=== PATIENT | male | born 1975 | race Caucasian/White ===

== ENCOUNTER 2018-06-01 10:18 | Inpatient (IN) | payer OTHER ==
[~2018-06-01 10:18] MED LIST: CEFAZOLIN 2 GM/50 ML (PMX) 50 ML IVPB; LACTATED RINGER'S 1,000 ML IV*; SEVOFLURANE 15 MIN
[2018-06-01] MEDS ORDERED: BISACODYL 10 MG SUPP PR (13:00)
[2018-06-01] MEDS ORDERED: AL HYDROX/MG HYDROX/SIMETH 30 ML CUP PO (13:00)
[2018-06-01] MEDS ORDERED: CEPASTAT LOZENGE MT (13:00)
[2018-06-01] MEDS ORDERED: DIPHENHYDRAMINE 50 MG INJ IV ×2 (13:00→17:30)
[2018-06-01] MEDS ORDERED: HYDROmorphONE 0.5 MG/0.5 ML SYG IV (13:00)
[2018-06-01] MEDS ORDERED: NALOXONE (0.4 MG/ML) INJ IV (13:00)
[2018-06-01] MEDS ORDERED: MIDAZOLAM 1 MG/ML 2 ML INJ (13:22)
[2018-06-01] MEDS ORDERED: ROCURONIUM 50 MG INJ ×3 (13:22→14:28)
[2018-06-01] MEDS ORDERED: SUCCINYLCHOLINE CHLORIDE 100 MG/5 ML SYG IV ×2 (13:22→13:35)
[2018-06-01] MEDS ORDERED: PROPOFOL 20 ML ×2 (13:22→13:35)
[2018-06-01] MEDS ORDERED: LIDOCAINE 2% (SDV) 5 ML INJ (13:22)
[2018-06-01] MEDS ORDERED: CEFAZOLIN 1 GM INJ (13:44)
[2018-06-01] MEDS ORDERED: FAMOTIDINE 20 MG INJ (13:59)
[2018-06-01] MEDS ORDERED: ONDANSETRON 4 MG INJ (13:59)
[2018-06-01] MEDS: THROMBIN 5000 UNIT VIAL ×3 (15:26→16:06)
[2018-06-01] MEDS: BUPIVACAINE 0.5%/EPI (SDV) 30 ML INJ (15:27)
[2018-06-01] MEDS: CA CHLORIDE (GM) 10% 10 ML INJ (15:44)
[2018-06-01] MEDS: HEPARIN 1000 UNITS/ML 10 ML INJ ×2 (15:45)
[2018-06-01] MEDS: SURGIFOAM POWDER 1 GM KIT (15:46)
[2018-06-01] MEDS: CEFAZOLIN 1 GM INJ (15:46)
[2018-06-01] MEDS: GELATIN SIZE 100 SPONGE (15:49)
[2018-06-01] MEDS ORDERED: HYDROmorphONE 2 MG/ML SYG (16:53)
[2018-06-01] MEDS ORDERED: EPHEDrine SULFATE 50 MG/5 ML SYG IV (17:30)
[2018-06-01] MEDS ORDERED: HYDROmorphONE 1 MG/5 ML IV SYRINGE IV ×3 (17:30)
[2018-06-01] MEDS ORDERED: PROCHLORPERAZINE 10 MG INJ IV (17:30)
[2018-06-01] MEDS ORDERED: hydrALAzine 20 MG INJ IV (17:30)
[2018-06-01] MEDS ORDERED: FENTAnyl 50 MCG/ML VIAL IV ×3 (17:30)
[2018-06-01] MEDS ORDERED: LABETALOL HCL 20MG INJ IV (17:30)
[2018-06-01] MEDS: HYDROmorphONE 0.2 MG/ML PCA IV (18:10)
[2018-06-01] MEDS: ONDANSETRON 4 MG INJ IV ×3 (18:25→22:20)
[2018-06-01] MEDS: MEPERIDINE 25 MG INJ IV (18:25)
[2018-06-01] MEDS ORDERED: ALBUTEROL HFA 8 GM INHALER INH (18:30)
[2018-06-01] MEDS ORDERED: DEXTROSE 50% 50 ML SYRINGE IV ×2 (18:30)
[2018-06-01] MEDS ORDERED: GLUCAGON 1 MG INJ IM (18:30)
[2018-06-01] MEDS ORDERED: GLUCOSE GEL 15 GRAM TUBE BUCCAL (18:30)
[2018-06-01] MEDS ORDERED: GLUCOSE GEL 15 GRAM TUBE PO ×2 (18:30)
[2018-06-01] MEDS: 1/2 NS + KCL 20 MEQ 1,000 ML IV ×2 (20:50→23:30)
[2018-06-01] MEDS: DOCUSATE SODIUM 100 MG CAP PO (20:51)
[2018-06-01] MEDS: CEFAZOLIN 1 GM/50 ML (PMX) 50 ML IVPB (20:51)
[2018-06-01 21:32] LABS: ADD UMIC NO; UR ASCORBIC ACID NEGATIVE (NEGATIVE); UR BILIRUBIN (Dip) NEGATIVE (NEGATIVE); UR BLOOD (Dip) NEGATIVE (NEGATIVE); UR CLARITY CLEAR (CLEAR); UR COLOR YELLOW (YELLOW); UR GLUCOSE (Dip) NEGATIVE (NEGATIVE); UR KETONES (Dip) NEGATIVE (NEGATIVE); UR LEUKOCYTE ESTERASE (Dip) NEGATIVE Leu/ul (NEGATIVE); UR NITRITE (Dip) NEGATIVE (NEGATIVE); UR SPECIFIC GRAVITY (Dip) 1.017 (1.003-1.030); UR TOTAL PROTEIN (Dip) NEGATIVE (NEGATIVE); UR UROBILINOGEN (Dip) NEGATIVE (NEGATIVE)
[2018-06-01] MEDS: ZOLPIDEM 5 MG TAB PO (23:52)
[2018-06-02] MEDS: HYDROmorphONE 0.2 MG/ML PCA IV ×3 (03:52→22:38)
[2018-06-02 05:28] LABS: ADD MAN DIFF? NO
[2018-06-02 05:35] LABS: WHITE BLOOD COUNT 13.5 10^3/ul (4.8-10.8)
[2018-06-02 05:35] LABS: BASOPHILS % 0.3 % (0.0-2.0); EOSINOPHILS % 0.1 % (0.0-7.0); HEMATOCRIT 42.3 % (42.0-52.0); HEMOGLOBIN 14.6 g/dl (14.0-18.0); LYMPHOCYTES # 1.1 10^3/ul (0.8-2.9); LYMPHOCYTES % 7.8 % (15.0-51.0); MEAN CORPUSCULAR HEMOGLOBIN 33.2 pg (29.0-33.0); MEAN CORPUSCULAR HGB CONC 34.5 g/dl (32.0-37.0); MEAN CORPUSCULAR VOLUME 96.1 fl (82.0-101.0); MEAN PLATELET VOLUME 9.4 fl (7.4-10.4); MONOCYTES % 7.4 % (0.0-11.0); NEUTROPHIL # 11.3 10^3/ul (1.6-7.5); NEUTROPHILS % 83.8 % (39.0-77.0); PLATELET COUNT 264 10^3/UL (140-415)
[2018-06-02] MEDS: CEFAZOLIN 1 GM/50 ML (PMX) 50 ML IVPB ×3 (05:45→13:44)
[2018-06-02] MEDS: PANTOPRAZOLE (EC) 40 MG TAB PO (05:45)
[2018-06-02 06:04] LABS: ANION GAP 10 (5-13); BLOOD UREA NITROGEN 14 mg/dl (7-20); CALCIUM 9.2 mg/dl (8.4-10.2); CARBON DIOXIDE 27 mmol/L (21-31); CHLORIDE 103 mmol/L (97-110); CREATININE 0.84 mg/dl (0.61-1.24); Estimated GFR > 60 mL/min (>60); GLUCOSE 139 mg/dl (70-220); MAGNESIUM 1.7 mg/dl (1.7-2.5); POTASSIUM 4.1 mmol/L (3.5-5.1); SODIUM 140 mmol/L (135-144)
[2018-06-02] MEDS: INSULIN ASPART [NOVOLOG] 3 ML PEN SC ×3 (07:20→17:25)
[2018-06-02] MEDS: metFORMIN 500 MG TAB PO ×2 (08:46→18:15)
[2018-06-02] MEDS: DOCUSATE SODIUM 100 MG CAP PO ×2 (08:47→20:10)
[2018-06-02] MEDS: FLUTICASONE/VILANTEROL 100-25 INH (08:47)
[2018-06-02] MEDS: CARISOPRODOL 350 MG TAB PO ×2 (10:13→18:15)
[2018-06-02] MEDS: 1/2 NS + KCL 20 MEQ 1,000 ML IV (10:13)
[2018-06-02] MEDS: ZOLPIDEM 5 MG TAB PO (22:42)
[2018-06-03] MEDS: HYDROmorphONE 0.2 MG/ML PCA IV (04:34)
[2018-06-03] MEDS: PANTOPRAZOLE (EC) 40 MG TAB PO (04:34)
[2018-06-03 05:11] LABS: ADD MAN DIFF? NO
[2018-06-03 05:22] LABS: ABNORMAL IP MESSAGE 1; BASOPHIL # 0.1 10^3/ul (0.0-0.1); BASOPHILS % 0.3 % (0.0-2.0); EOSINOPHILS # 0.1 10^3/ul (0.0-0.5); EOSINOPHILS % 0.5 % (0.0-7.0); HEMATOCRIT 41.7 % (42.0-52.0); HEMOGLOBIN 14.1 g/dl (14.0-18.0); LYMPHOCYTES # 1.7 10^3/ul (0.8-2.9); LYMPHOCYTES % 10.6 % (15.0-51.0); MEAN CORPUSCULAR HEMOGLOBIN 33.2 pg (29.0-33.0); MEAN CORPUSCULAR HGB CONC 33.8 g/dl (32.0-37.0); MEAN CORPUSCULAR VOLUME 98.1 fl (82.0-101.0); MEAN PLATELET VOLUME 9.6 fl (7.4-10.4); MONOCYTE # 1.6 10^3/ul (0.3-0.9); MONOCYTES % 10.2 % (0.0-11.0); NEUTROPHIL # 12.3 10^3/ul (1.6-7.5); NEUTROPHILS % 77.8 % (39.0-77.0); PLATELET COUNT 210 10^3/UL (140-415); POSITIVE DIFF @See below; RED BLOOD COUNT 4.25 10^6/ul (4.70-6.10); RED CELL DISTRIBUTION WIDTH 12.3 % (11.5-14.5)
[2018-06-03 05:22] LABS: WHITE BLOOD COUNT 15.9 10^3/ul (4.8-10.8)
[2018-06-03 05:41] LABS: PHOSPHORUS 3.2 mg/dl (2.5-4.9)
[2018-06-03 05:48] LABS: ANION GAP 7 (5-13); BLOOD UREA NITROGEN 10 mg/dl (7-20); CALCIUM 9.1 mg/dl (8.4-10.2); CARBON DIOXIDE 33 mmol/L (21-31); CHLORIDE 98 mmol/L (97-110); CREATININE 1.01 mg/dl (0.61-1.24); Estimated GFR > 60 mL/min (>60); GLUCOSE 142 mg/dl (70-220); MAGNESIUM 2.1 mg/dl (1.7-2.5); POTASSIUM 4.1 mmol/L (3.5-5.1); SODIUM 138 mmol/L (135-144)
[2018-06-03] MEDS: INSULIN ASPART [NOVOLOG] 3 ML PEN SC ×3 (07:20→17:25)
[2018-06-03] MEDS: FLUTICASONE/VILANTEROL 100-25 INH (09:00)
[2018-06-03] MEDS: CARISOPRODOL 350 MG TAB PO ×3 (09:28→21:16)
[2018-06-03] MEDS: metFORMIN 500 MG TAB PO ×2 (09:28→18:09)
[2018-06-03] MEDS: HYDROCODONE/APAP (10/325) TAB PO ×4 (09:29→21:16)
[2018-06-03] MEDS: DOCUSATE SODIUM 100 MG CAP PO ×2 (09:29→21:16)
[2018-06-03] MEDS ORDERED: HYDROCODONE/APAP (10/325) TAB PO ×2 (09:30→10:00)
[2018-06-03 15:19] LABS: ADD UMIC YES; UR ASCORBIC ACID NEGATIVE (NEGATIVE); UR BILIRUBIN (Dip) NEGATIVE (NEGATIVE); UR BLOOD (Dip) 1+ mg/dL (NEGATIVE); UR CLARITY SLIGHTLY CLOUDY (CLEAR); UR COLOR YELLOW (YELLOW); UR GLUCOSE (Dip) NEGATIVE (NEGATIVE); UR KETONES (Dip) NEGATIVE (NEGATIVE); UR LEUKOCYTE ESTERASE (Dip) NEGATIVE Leu/ul (NEGATIVE); UR MUCUS FEW /HPF (NONE SEEN); UR NITRITE (Dip) NEGATIVE (NEGATIVE); UR RBC 1 /HPF (0-5); UR SPECIFIC GRAVITY (Dip) 1.011 (1.003-1.030); UR TOTAL PROTEIN (Dip) NEGATIVE (NEGATIVE); UR UROBILINOGEN (Dip) NEGATIVE (NEGATIVE); UR WBC 1 /HPF (0-5)
[2018-06-03] MEDS: ALPRAZOLAM 1 MG TAB PO (23:53)
[2018-06-03] MEDS: ZOLPIDEM 5 MG TAB PO (23:53)
[2018-06-03] MEDS: ACETAMINOPHEN 325 MG TAB PO (23:59)
[2018-06-04] MEDS: PANTOPRAZOLE (EC) 40 MG TAB PO (04:49)
[2018-06-04 06:18] LABS: ADD MAN DIFF? NO
[2018-06-04 06:34] LABS: WHITE BLOOD COUNT 10.7 10^3/ul (4.8-10.8)
[2018-06-04 06:34] LABS: BASOPHILS % 0.2 % (0.0-2.0); EOSINOPHILS # 0.3 10^3/ul (0.0-0.5); EOSINOPHILS % 2.4 % (0.0-7.0); HEMATOCRIT 42.3 % (42.0-52.0); HEMOGLOBIN 14.1 g/dl (14.0-18.0); LYMPHOCYTES # 1.9 10^3/ul (0.8-2.9); LYMPHOCYTES % 17.8 % (15.0-51.0); MEAN CORPUSCULAR HEMOGLOBIN 32.9 pg (29.0-33.0); MEAN CORPUSCULAR HGB CONC 33.3 g/dl (32.0-37.0); MEAN CORPUSCULAR VOLUME 98.6 fl (82.0-101.0); MEAN PLATELET VOLUME 9.9 fl (7.4-10.4); MONOCYTE # 1.2 10^3/ul (0.3-0.9); MONOCYTES % 10.8 % (0.0-11.0); NEUTROPHIL # 7.3 10^3/ul (1.6-7.5); NEUTROPHILS % 68.3 % (39.0-77.0); PLATELET COUNT 227 10^3/UL (140-415); RED BLOOD COUNT 4.29 10^6/ul (4.70-6.10); RED CELL DISTRIBUTION WIDTH 12.2 % (11.5-14.5)
[2018-06-04 06:56] LABS: PHOSPHORUS 2.5 mg/dl (2.5-4.9)
[2018-06-04 07:00] LABS: ANION GAP 8 (5-13); BLOOD UREA NITROGEN 13 mg/dl (7-20); CALCIUM 9.6 mg/dl (8.4-10.2); CARBON DIOXIDE 36 mmol/L (21-31); CHLORIDE 97 mmol/L (97-110); Estimated GFR > 60 mL/min (>60); GLUCOSE 115 mg/dl (70-220); MAGNESIUM 2.3 mg/dl (1.7-2.5); POTASSIUM 3.6 mmol/L (3.5-5.1); SODIUM 141 mmol/L (135-144)
[2018-06-04] MEDS: CARISOPRODOL 350 MG TAB PO ×2 (07:28→15:25)
[2018-06-04] MEDS: HYDROCODONE/APAP (10/325) TAB PO ×3 (07:29→16:31)
[2018-06-04] MEDS: metFORMIN 500 MG TAB PO (08:29)
[2018-06-04] MEDS: FLUTICASONE/VILANTEROL 100-25 INH (08:33)
[2018-06-04] MEDS: DOCUSATE SODIUM 100 MG CAP PO (08:33)
[2018-06-04] MEDS: INSULIN ASPART [NOVOLOG] 3 ML PEN SC ×2 (08:33→12:23)
== END 2018-06-04 17:47 | disposition home or self-care (01) | DRG 460 ==
LOC: REC 10:18 → MS1 20:00
PROVIDERS: Specialist
PROC: 0SG00AJ Fusion of Lumbar Vertebral Joint with Interbody Fusion Device, Posterior Approach, Anterior Column, Open Approach (ICD-10-PCS; principal; 2018-06-01 12:30)
PROC: 0ST20ZZ Resection of Lumbar Vertebral Disc, Open Approach (ICD-10-PCS; 2018-06-01 12:30)
PROC: 01NB0ZZ Release Lumbar Nerve, Open Approach (ICD-10-PCS; 2018-06-01 12:30)
PROC: 4A11X4G Monitoring of Peripheral Nervous Electrical Activity, Intraoperative, External Approach (ICD-10-PCS; 2018-06-01 12:30)
DX: M51.16 Intervertebral disc disorders with radiculopathy, lumbar region (principal); M48.061 Spinal stenosis, lumbar region without neurogenic claudication; E11.8 Type 2 diabetes mellitus with unspecified complications; E66.9 Obesity, unspecified; F31.9 Bipolar disorder, unspecified; F41.9 Anxiety disorder, unspecified; G47.30 Sleep apnea, unspecified; J45.909 Unspecified asthma, uncomplicated; Z68.32 Body mass index [BMI] 32.0-32.9, adult; Z79.84 Long term (current) use of oral hypoglycemic drugs
CPT/HCPCS: 72114; 80048; 81001; 81003; 82962; 83735; 84100; 85025; 86999; 87086; 88304; 94660; 97116; 97162; 97165; 97530; 97535